=== PATIENT | male | born 1970 | race Caucasian/White ===

== ENCOUNTER 2020-01-22 22:14 | Emergency (ER) | payer MEDICAID, OTHER ==
[~2020-01-22] VITALS: Ht 175.3 cm; Wt 72.7 kg
[2020-01-22] MEDS ORDERED: normal saline 1000ml 1,000 ML IVB ONE (22:22)
[2020-01-22] MEDS ORDERED: ondansetron/PF 4mg/2ml inj IV ONE (22:25)
[2020-01-22] MEDS ORDERED: morphine 4 MG/ML inj SYRINge IV ONE (22:25)
--- NOTE | 2020-01-22 22:36 | NUR ---
Pt rolling around on bed stating pain is 50/10. Verbal orders for 4 mg morphine and 4 mg Zofran entered and administered.
[2020-01-22] MEDS ORDERED: normal saline 1000ML IV soln IVB ONE (22:45)
[2020-01-22] MEDS: morphine 4 MG/ML inj SYRINge IV PRN ×2 (22:47→23:24)
[2020-01-22 22:58] LABS: ALANINE AMINOTRANSFERASE 22 U/L (12-78); ALBUMIN/GLOBULIN RATIO 1.2 (1.1-1.5); ALKALINE PHOSPHATASE 99 IU/L (46-116); ANION GAP 10 (8-16); ASPARTATE AMINO TRANSFERASE 13 U/L (10-37); BILIRUBIN,TOTAL 0.2 MG/DL (0.1-1.0); BLOOD UREA NITROGEN 13 MG/DL (7-18); BUN/CREATININE RATIO 11.7 (5.4-32.0); CALCIUM 8.8 MG/DL (8.5-10.1); CHLORIDE 104 MMOL/L (99-107); CREATININE 1.11 MG/DL (0.60-1.10); GLUCOSE 95 MG/DL (70-104); LIPASE 69 U/L (73-393); POTASSIUM 3.3 MMOL/L (3.5-5.1); SODIUM 138 MMOL/L (135-145); TOTAL CARBON DIOXIDE 23.6 MMOL/L (24-32); TOTAL PROTEIN 7.4 G/DL (6.4-8.2); eGFR 70 ML/MIN
--- NOTE | 2020-01-22 22:58 | NUR ---
pt to ct via [facility] with [facility]
[2020-01-22 23:02] LABS: BASOPHILS # (AUTO) 0.1 X10'3 (0-0.2); BASOPHILS % (AUTO) 1.1 % (0-1); EOSINOPHILS # (AUTO) 0.1 X10'3 (0-0.9); EOSINOPHILS % (AUTO) 1.1 % (0-6); HEMATOCRIT 42.2 % (42.0-52.0); HEMOGLOBIN 14.4 g/dl (14.0-17.9); LYMPHOCYTES # (AUTO) 3.4 X10'3 (1.1-4.8); MEAN CORPUSCULAR HEMOGLOBIN 30.8 PG (27.0-31.0); MEAN CORPUSCULAR HGB CONC 34.1 g/dL (33.0-36.5); MEAN CORPUSCULAR VOLUME 90.2 FL (78-98); MEAN PLATELET VOLUME 8.3 FL (7.4-10.4); MONOCYTES # (AUTO) 0.8 X10'3 (0-0.9); MONOCYTES % (AUTO) 7.4 % (2-12); NEUTROPHILS # (AUTO) 6.5 X10'3 (1.8-7.7); NEUTROPHILS % (AUTO) 59.4 % (42-75); PLATELET COUNT 301 X10'3 (140-440); RED BLOOD COUNT 4.67 X10'6 (4.70-6.10); RED CELL DISTRIBUTION WIDTH 12.9 % (11.5-14.5); WHITE BLOOD COUNT 10.9 X10'3 (4.5-11.0)
--- NOTE | 2020-01-22 23:12 | NUR ---
pt back from ct
--- NOTE | 2020-01-22 23:25 | NUR ---
pt medicated for pain 4 mg mso4 for "pain 45 out of 10 " DR HENNESSY AT BEDSIDE TO INFORM PT HE HAS A 4MM KIDNEY STONE
[2020-01-22] MEDS ORDERED: HYDR-3965 PO (23:26)
[2020-01-22] MEDS ORDERED: ONDA4TAB6 PO (23:26)
[2020-01-22] MEDS ORDERED: FLO0.4C PO (23:26)
[2020-01-22] MEDS ORDERED: ketorolac trometh. 30mg/ml inj. IV ONE (23:45)
[2020-01-23 00:31] VITALS: BP 134/73
== END 2020-01-23 00:32 | disposition home or self-care (01) ==
LOC: ER 22:14
DX: N20.0 Calculus of kidney (principal); Z88.1 Allergy status to other antibiotic agents; Z88.0 Allergy status to penicillin; Z79.899 Other long term (current) drug therapy
CPT/HCPCS: 36415; 74176; 80053; 83690; 85025; 96374; 96375; 96376; 99284; J1885; J2270; J2405; J7030

== ENCOUNTER 2022-01-13 06:24 | Emergency (ER) | payer MEDICAID ==
[~2022-01-13] VITALS: Ht 175.3 cm; Wt 68.2 kg
[~2022-01-13 06:24] MED LIST: ONDA4TAB6 PO
[2022-01-13] MEDS ORDERED: normal saline 1000ML IV soln IVB ONE ×3 (06:40→12:35)
[2022-01-13] MEDS ORDERED: meperidine/PF 50mg/ml syringe IV ONE ×2 (06:40→12:35)
[2022-01-13] MEDS ORDERED: normal saline 1000ml 1,000 ML IV ONE (06:40)
[2022-01-13] MEDS ORDERED: sildenafil citrate 20mg tablet PO ONE (06:40)
[2022-01-13] MEDS ORDERED: ketorolac trometh. 30mg/ml inj. IV ONE (06:40)
[2022-01-13 07:04] LABS: BASOPHILS # (AUTO) 0.1 X10'3 (0-0.2); BASOPHILS % (AUTO) 0.7 % (0-1); EOSINOPHILS # (AUTO) 0.2 X10'3 (0-0.9); EOSINOPHILS % (AUTO) 2.2 % (0-6); HEMATOCRIT 42.7 % (42.0-52.0); HEMOGLOBIN 14.5 g/dl (14.0-17.9); LYMPHOCYTES # (AUTO) 2.7 X10'3 (1.1-4.8); LYMPHOCYTES % (AUTO) 31.1 % (21-51); MEAN CORPUSCULAR HEMOGLOBIN 30.3 PG (27.0-31.0); MEAN CORPUSCULAR VOLUME 89.1 FL (78-98); MEAN PLATELET VOLUME 7.5 FL (7.4-10.4); MONOCYTES # (AUTO) 0.6 X10'3 (0-0.9); MONOCYTES % (AUTO) 7.5 % (2-12); NEUTROPHILS % (AUTO) 58.5 % (42-75); PLATELET COUNT 296 X10'3 (140-440); RED CELL DISTRIBUTION WIDTH 13.8 % (11.5-14.5); WHITE BLOOD COUNT 8.6 X10'3 (4.5-11.0)
[2022-01-13 07:26] LABS: ALANINE AMINOTRANSFERASE 20 U/L (12-78); ALBUMIN/GLOBULIN RATIO 1.2 (1.1-1.5); ALKALINE PHOSPHATASE 103 IU/L (46-116); ANION GAP 12 (8-16); ASPARTATE AMINO TRANSFERASE 12 U/L (10-37); BILIRUBIN,TOTAL 0.4 MG/DL (0.1-1.0); BLOOD UREA NITROGEN 14 MG/DL (7-18); BUN/CREATININE RATIO 12.7 (5.4-32.0); CALCIUM 8.8 MG/DL (8.5-10.1); CHLORIDE 105 MMOL/L (99-107); GLUCOSE 104 MG/DL (70-104); LIPASE 103 U/L (73-393); POTASSIUM 3.9 MMOL/L (3.5-5.1); SODIUM 140 MMOL/L (135-145); TOTAL PROTEIN 7.4 G/DL (6.4-8.2); eGFR 70 ML/MIN
[2022-01-13 10:00] VITALS: BP 101/57
[2022-01-13 10:39] LABS: CLARITY,URINE CLEAR (Clear); COLOR,URINE YELLOW (Yellow); GLUCOSE, URINE NEGATIVE (Neg); KETONES,URINE NEGATIVE (Neg); LEUKOCYTE ESTERASE ,URINE NEGATIVE (Neg); NITRITES, URINE NEGATIVE (Neg); OCCULT BLOOD,URINE LARGE (Neg); PROTEIN,URINE NEGATIVE (Neg); UROBILINOGEN,URINE 0.2 E.U/dL (0.2-1.0)
[2022-01-13 10:44] LABS: UA COLLECTION TYPE STRAIGHT CATH
[2022-01-13 10:59] LABS: BACTERIA,URINE NONE SEEN /HPF (Neg); MUCUS STRANDS MODERATE /LPF (Neg); SQUAMOUS EPITHELIAL CELL,UR FEW /LPF (FEW); WBC,URINE 0-4 /HPF (0-4)
[2022-01-13 11:00] LABS: FINE GRANULAR CAST 0-3 /LPF (NEGATIVE)
[2022-01-13] MEDS ORDERED: FLO0.4C PO (14:14)
== END 2022-01-13 14:28 | disposition home or self-care (01) ==
LOC: ER 06:25
DX: N23 Unspecified renal colic (principal); Z87.442 Personal history of urinary calculi; Z88.0 Allergy status to penicillin; Z88.1 Allergy status to other antibiotic agents; Z79.899 Other long term (current) drug therapy
CPT/HCPCS: 36415; 74176; 80053; 81001; 83690; 85025; 96361; 96374; 96375; 96376; 99285; J1885; J2175; J7030

== ENCOUNTER 2025-03-25 22:09 | Emergency (ER) | payer MEDICAID ==
[~2025-03-25] VITALS: Ht 175.3 cm; Wt 68.2 kg
--- NOTE | 2025-03-25 22:44 | RADIOLOGY REPORT ---
CHEST RADIOGRAPH Indication: PRODUCTIVE COUGH Technique: 1 view Comparison: None FINDINGS: Lines and Tubes: Leadless cardiac device overlies the left hilum. Lungs/Pleura: No focal consolidation, pleural effusion or pneumothorax. Cardiomediastinum: Normal heart size. Aortic atherosclerosis. Other: No acute osseous abnormality. IMPRESSION: 1. No acute cardiopulmonary abnormality.
--- NOTE | 2025-03-25 23:49 | Physician Documentation ---
History of Present Illness ~ Chief Complaint: Cold, cough & congestion Stated Complaint: PNEUMONIA Time Seen by MD: 22:56 Primary Medical Doctor: no pmd HPI Patient is a 54-year-old male that presents to the emergency department for complaints of cough congestion fever and all over body aches times several days. Patient reports he has been taking TheraFlu at home with some relief. Patient denies nausea vomiting diarrhea at this time. No other symptoms reported at this time. Medication Reconciliation Allergies: Coded Allergies: Penicillins (Verified Allergy, Unknown, 03/07/14) erythromycin base (Verified Allergy, Unknown, 03/07/14) Scheduled PRN Ondansetron Hcl (Zofran), 1 TAB PO Q8H PRN for nausea/vomiting Past Medical History Past Medical History: Kidney Stones Past Surgical History: no surgical history Lives In: Home Review of Systems ROS As stated above in the HPI, otherwise all systems are reviewed and negative. Physical Exam Vital Signs: Temperature: 99.4, Heart Rate: 104, Respiratory Rate: 20, BP: 15 7/98, Pulse Oximetry: 96, Weight: 68.200 Oxygen Flow Rate: 0 Physical Exam VITALS: Reviewed and as above. GENERAL: Alert, no apparent distress. HEENT: Normocephalic, atraumatic, PERRL, EOMI, dry mucosa, no erythema RESPIRATORY: Lungs clear, normal breath sounds, no respiratory distress. CHEST: No accessory muscle use, no retractions CV: Regular rate, rhythm, no edema, no murmur, No: JVD GI: Soft, non-tender, bowels sounds present, no rebound, guarding, or rigidity BACK: No CVA tenderness, or swelling MUSCULOSKELETAL No deformities, no edema SKIN: Warm and dry, no rash NEURO: Oriented x4, No motor or sensory deficit PSYCH: Normal mood and affect, no agitation Progress Results/Orders Results/Orders Vital Signs 03/25/25 22:13 Temp 99.4 Pulse 104 Resp 20 B/P (MAP) 157/98 Pulse Ox 96 O2 Flow Rate 0 Medical Decision Making Additional information obtaine: other Findings Medical Decision-Making (MDM) Discharge Note Patient: 54-year-old male Presenting symptoms: Cough, congestion, body aches, fever for several days. Denies nausea, vomiting, diarrhea. Home medications: TheraFlu. No Tylenol or ibuprofen required in ED. Vital signs: Stable. Physical exam: Consistent with upper respiratory viral infection. Imaging: Chest X-ray without concerning findings or abnormalities. Assessment: Clinical presentation is most consistent with an uncomplicated upper respiratory viral infection (URI). The patient meets criteria for viral respiratory syndrome: multiple days of cough, congestion, and fever, with stable vital signs and no evidence of lower respiratory tract involvement or bacterial complications. Chest X-ray is normal, further excluding pneumonia or other acute pathology.[2] The absence of focal findings, persistent high fever, or prolonged/worsening symptoms supports a viral etiology.[1-2][4-5] Management: No antibiotics indicated. Antibiotics are not recommended for viral URIs and do not improve outcomes or prevent complications. Supportive care advised: Continue symptomatic management with [id number] medications as tolerated (e.g., acetaminophen, ibuprofen, decongestants, saline nasal spray, cough suppressants). Education provided: Discussed expected course (symptoms typically peak within 3 days, gradually resolve over 714 days). Advised to monitor for warning signs: persistent fever >10 days, new or worsening symptoms, shortness of breath, chest pain, confusion, or inability to maintain oral intake. Return precautions: Instructed to seek medical attention if symptoms worsen, new focal findings develop, or if unable to manage at home. Disposition: Patient is stable for discharge. No evidence of bacterial infection or complications. Follow-up with primary care as needed. MDM Summary: Diagnosis and management are supported by current guidelines and literature, emphasizing symptomatic care and avoidance of unnecessary antibiotics for viral upper respiratory infections. Differential Dx:Considerations: Include: Allergic rhinitis, Influenza, Otitis media, Peritonsillar abscess, Pharyngitis-Diphtheria, Pharyngitis-Streptoccal, Pharyngitis-Viral, Pneumonia, Pnuemonitis, Sinusitis, URI, Other Departure Disposition: 01 HOME / SELF CARE / HOMELESS Impression: Primary Impression: Viral upper respiratory infection Condition: Stable Discharge Instructions: Upper Respiratory Infection, Adult Additional Instructions: You have been evaluated for cough, congestion, body aches, and fever lasting several days. Your exam and tests show you have a viral upper respiratory infection (common cold). This is a self-limited illness, meaning it will get better on its own and does not require antibiotics. What to expect: Symptoms usually peak in the first 3 days and gradually improve over 714 days. It is normal to have colored nasal discharge; this does not mean you have a bacterial infection. Fever may occur early and should resolve as you recover. How to feel better: Rest and drink plenty of fluids. You may use [id number] medications for symptom relief, such as acetaminophen (Tylenol) or ibuprofen for pain or fever, and decongestants or saline nasal spray for congestion. TheraFlu and similar combination products may help with symptoms, but use only as directed. Nasal saline irrigation may help with congestion and is safe for most people. Avoid using topical nasal decongestants (like oxymetazoline) for more than 3 days to prevent rebound congestion. Antibiotics are not helpful for viral infections and may cause side effects. Prevent spreading the illness: Wash your hands often. Cover your mouth and nose when coughing or sneezing. Stay home until you feel better. When to seek medical care: If your symptoms last longer than 2 weeks or worsen If you develop new or severe symptoms, such as shortness of breath, chest pain, confusion, or trouble keeping fluids down If you have a high fever that does not improve Most people recover fully with supportive care. If you have any questions or concerns, contact your healthcare provider. Referrals: NO PRIMARY CARE PROVIDER (PCP) Education Educated: Patient Educated regarding: diagnosis, treatment, need for follow up Signature Scribe Signature: A Attestation: Scribed for Alecia Dinero by MARIAMA Yoo . 03/25/25 23:49 ALECIA DINERO Mar 25, 2025 23:49
[2025-03-25 23:58] VITALS: BP 155/90; PULSE 99; RESP 18; TEMP 98.6; O2SAT 99
== END 2025-03-25 23:59 | disposition home or self-care (01) ==
LOC: ER 22:10
DX: J06.9 Acute upper respiratory infection, unspecified (principal); Z87.442 Personal history of urinary calculi; Z88.0 Allergy status to penicillin; Z88.1 Allergy status to other antibiotic agents
CPT/HCPCS: 71045; 99283